=== PATIENT | male | born 1995 | race Caucasian/White ===

== ENCOUNTER 2024-12-24 02:40 | Emergency (ER) | payer OTHER, SELFPAY ==
[2024-12-24 02:42] VITALS: BP 142/84; PULSE 108; O2SAT 98
[2024-12-24 02:50] VITALS: BP 119/76; PULSE 79; RESP 16; TEMP 36.4; O2SAT 95; BMI 21.6
--- OUTSIDE RECORDS SUMMARY | 2024-12-24 03:31 | XMS_ITS | Encounter Summary ---
Author Organization [facility] Address [address] [place] [address] Phone Care Team Providers Care Automat Car Attendant Name Role Phone Bair Chatman MD Primary Care Provider Encounter Details Date Type Department Care Team (Late st Contact Info) Description 11/26/2011 Conversion Encounter [facility] [address] [facility] [place] [id number] Social History Tobacco Use Types Packs/Day Years Used Date Smoking Tobacco: Never Assessed Sex and Gender Information Value Date Recorded Sex Assigned at Not on file Legal Sex Male 6:38 PM EDT Gender Identity Not on file Sexual Orientation Not on file documented as of this encounter Plan of Treatment Not on file documented as of this encounter Visit Diagnoses Not on filedocumented in this encounter Care Teams Automat Car Attendant Relationship Specialty Start Date End Date Bari Chatman MD [address] [place] [address] [place] [id number] PCP - General 03/03/18 documented as of this encounter
--- OUTSIDE RECORDS SUMMARY | 2024-12-24 03:31 | XMS_ITS ---
Author Organization [facility] Network Address [address] [facility] [address] [place] [address] Care Team Providers Care Coat Presser Name Role Phone cedric clement Primary Care Provider CHARLES Duran [phone] REASON FOR VISIT Anal Fissures Medications Medication SIG (Take, Route, Frequency, Duration) Notes Start Date End Date Status clonazePAM 0.5 MG 1 tablet at bedtime Orally Once a day PRN Active Descovy 200-25 MG 1 tablet Orally Once a day for 30 day(s) Active Hydrocortisone 2.5 % APPLY TO AFFECTED A LONG TWICE A DAY EXTERNALLY for 28 Active Zoloft 100 MG 1 tablet Orally Once a day for 30 day(s) Active Rectiv 0.4 % USE DIRECTED APPL Y RECTALLY ONCE A DAILY FOR 30 DAYS for 30 Active Nitroglycerin 0.4 % as directed Rectal O nce a day for 30 days 06/15/2023 Active Lidocaine (Anorectal) 5 % 1 for anal fis sure Externally Four times a day PRN for 30 days 06/15/2023 Active Hydrocortisone (Perianal) 2.5 % 1 application Externally Twice a day for 30 days Active Nitroglycerin 0.4 % as directed Rectal O nce a day for 30 days Active Lidocaine 5 % 1 application as nee ded Externally Three times a day for 30 days Active Lidocaine 5 % APPLY TO AFFECTED AR EA 3 TIMES A DAY 30 (NEED INSURANCE) for 30 Active Encounters Encounter Location Date Provider Diagnosis 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 In the last 6 months he reports that pain has worsened, occurring whenever he is seated and during every BM. Normally, he has 1 BM/day BS 5-6, but notes that he sometimes has periods where he goes up to 3 days without a BM, after which he has a BM that causes severe pain. BM are followed by spasming of rectum. He notes that blood is visible in toilet bowl, especially if stool is firmer. Patient does note that he does engage in anal intercourse. He has never had colonoscopy in the past. We discussed the following: - We will begin triple therapy with Nitroglycerin ointment CT + Hydrocortisone cream CT + lidocaine ointment CT. He has been instructed to mix all 3 and use before and after BM. - If anal fissure does not improve notably in 1 month with this treatment, I recommend that he undergoes a colonoscopy. - I recommend that patient utilize dilators to prepare anus and minimize injury before engaging in anal intercourse. - Follow up in 1 month regarding sx management. 07/22/2023 Other This note was transcribed by Jose Clifton for Dr. Charles Storey and will be completed within 7 days of date of service. LEVEL 4 Number and complexity of problems (moderate): 1 undiagnosed new problem with uncertain prognosis - Anal fissure Risks (moderate): -Prescription drug management - nitroglycerin ointment -Decision regarding minor surgery with identified patient or procedure risk factors - discussion of colonoscopy Plan Of Treatment Medication Medication Name Sig Start Date Stop Date Notes Hydrocortisone (Perianal) 2.5 % 1 applic ation Externally Twice a day for 30 days Nitroglycerin 0.4 % as directed Rectal O nce a day for 30 days Lidocaine 5 % 1 application as nee ded Externally Three times a day for 30 days Treatment Notes Assessment Notes Chronic anal fissure Patient presents with a suspected anal fissure that has caused him on and off discomfort for 3 years. In the last 6 months he reports that pain has worsened, occurring whenever he is seated and during every BM. Normally, he has 1 BM/day BS 5-6, but notes that he sometimes has periods where he goes up to 3 days without a BM, after which he has a BM that causes severe pain. BM are followed by spasming of rectum. He notes that blood is visible in toilet bowl, especially if stool is firmer. Patient does note that he does engage in anal intercourse. He has never had colonoscopy in the past. We discussed the following: - We will begin triple therapy with Nitroglycerin ointment CT + Hydrocortisone cream CT + lidocaine ointment CT. He has been instructed to mix all 3 and use before and after BM. - If anal fissure does not improve notably in 1 month with this treatment, I recommend that he undergoes a colonoscopy. - I recommend that patient utilize dilators to prepare anus and minimize injury before engaging in anal intercourse. - Follow up in 1 month regarding sx management. Other This note was transcribed by Jose Clifton for Dr. Charles Storey and will be completed within 7 days of date of service. LEVEL 4 Number and complexity of problems (moderate): 1 undiagnosed new problem with uncertain prognosis - Anal fissure Risks (moderate): -Prescription drug management - nitroglycerin ointment -Decision regarding minor surgery with identified patient or procedure risk factors - discussion of colonoscopy Next Appt Details Follow Up: 4 Weeks, Reason: fissure f/u Progress Notes * Jesus GORMANonDOB:[birth year] (29 yo M)Acc No.[id number]:07/22/2023 Progress Notes Patient:?Yogesh GORMAN Provider:?Charles Storey MD :1995???Age:28 Y???Sex:Male Ryan e:07/22/2023 Address:[address] [place], [place] [id number] Pcp:cerdic clement Subjective: * Chief Complaints: * ???1. Anal Fissures. * HPI: ???General:? We have the pleasure of seeing Yogesh at [facility] on 07/22/2023 for evaluation of the above. He was previously seen on 03/10/2023. ANAL FISSURES 1) Onset - intermittent since 2019, exacerbation in 07/2022 2) Frequency - often when sitting, during every BM, followed by spasm of rectum. 3) Amount (visualized on toilet paper or in bowl) - mild if stool is soft (BS 5- 6), but when stool is firm (3-4), blood in the bowl is bright red and in larger amounts 4) Assosciated with defecation, anal pain - Y 5)History of constipation - regularly has 1 BM/day BS 5-6, but notes that he can sometimes go up to 3 days without BM, after which BM causes severe rectal pain 6) Family or personal history of colon cancer (Y or N) - N 7) Any alarming symtpoms - None 8) Personal or family hx or inflammatory bowel disease- None 9) Use of foreign body or anal intercourse - Patient does engage in anal intercourse. 10) EGD/Colonoscopy - none The tear is at 12 o'clock position in anus. He currently uses a bidet which helps with pain and bleeding when wiping with toilet paper. * ROS:?Constitutional: No weight change, fever, chills or anorexia Gastrointestinal: SEE HPI Integumentary: No rashes or edema Musculoskeletal: No weakness or muscle pain. * Medical History:? * Medications:?Taking Descovy 200-25 MG Tablet 1 tablet Orally Once a day , Taking clonazePAM 0.5 MG Tablet 1 tablet at bedtime Orally Once a day , Notes to Pharmacist: PRN, Taking Zoloft 100 MG Tablet 1 tablet Orally Once a day , Taking Hydrocortisone 2.5 % Cream APPLY TO AFFECTED AREA TWICE A DAY EXTERNALLY , Taking Rectiv 0.4 % Ointment USE DIRECTED APPLY RECTALLY ONCE A DAILY FOR 30 DAYS , Taking Lidocaine 5 % Ointment APPLY TO AFFECTED AREA 3 TIMES A DAY 30 (NEED INSURANCE) , Taking Lidocaine (Anorectal) 5 % Cream 1 for anal fissure Externally Four times a day PRN , Taking Nitroglycerin 0.4 % Ointment as directed Rectal Once a day Objective: * Vitals:? * Physical Examination:?General appearance: No evidence of malnourishment, well developed Neck: Soft, normal carotid upstroke and amplitude without bruits Lungs: Clear to auscultation, no crackles CV: RRR, no murmurs Abdomen: Patient underwent rectal exam that showed tear at 12 o'clock position. Extremities: No edema in lower extremities Skin: no rash, no swelling Psych: Alert and oriented x 3 Lymphatics/hematology/Immunology: no enlarged lymph nodes. 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 Plan: * Treatment: 2.?Others? Notes: This note was transcribed by Jose Clifton for Dr. Charles Storey and will be completed within 7 days of date of service. LEVEL 4 Number and complexity of problems (moderate): 1 undiagnosed new problem with uncertain prognosis - Anal fissure Risks (moderate): -Prescription drug management - nitroglycerin ointment -Decision regarding minor surgery with identified patient or procedure risk factors - discussion of colonoscopy?? * Follow Up:?4 Weeks (Reason: fissure f/u) * Images: * Electronic signature of CHARLES STOREY M.D. on 12/24/2024 at 03:30 AM EST Sign off status: Pending * Provider:?Charles Storey MD Date:? 3 Generated for Vanessa rodriguez/Hung/Kaiden on:?12/24/2024 03:30 AM EST History and Physical Notes * Physical Examination Category Sub-Category Detail Notes Section Note s General appearance: No evidence of malnourishment, well developed Neck: Soft, normal carotid upstroke and amplitude without bruits Lungs: Clear to auscultation, no crackles CV: RRR, no murmurs Abdomen: Patient underwent rectal exam that showed tear at 12 o'clock position. Extremities: No edema in lower extremities Skin: no rash, no swelling Psych: Alert and oriented x 3 Lymphatics/hematology/Immunology: no enlarged lymph nodes
--- OUTSIDE RECORDS SUMMARY | 2024-12-24 03:31 | XMS_ITS | Clinical Summary ---
Author Organization [facility] Address [address] [place] [address] Phone Care Team Providers Care Pick Up Man Name Role Phone Bari Chatman MD Primary Care Provider [phone] Immunizations Immunization Administration Dates Next Due DTaP 5 05/10/2001, 7,1996, 996,1996 H1N1 Inj 08/18/2009 Hep B, ped/adol 1996,1996,1996 Hib (PRP-T) 06/30/1997, 6,1996, 996 IPV 05/10/2001 Influenza, injectable, trivalent 08/21/2010,12/0 10/2007 MMR 05/10/2001,03/27/1997 Meningococcal Conj (Menactra) MCV4P 02/07/2014,0 07/03/2008 OPV 1996,1996,1996 Tdap 07/03/2008 Varicella 07/03/2008,06/30/1997 Social History Tobacco Use Types Packs/Day Years Used Date Smoking Tobacco: Never Comments:Never Smoker Sex and Gender Information Value Date Recorded Sex Assigned at Not on file Legal Sex Male 6:38 PM EDT Gender Identity Not on file Sexual Orientation Not on file Last Filed Vital Signs Vital Sign Reading Time Taken Comments Blood Pressure - - Pulse 80 02/07/2014 3:55 PM EDT Temperature 36.9 ??C (98.4 ??F) 02/01/2015 5:20 PM ED T Respiratory Rate - - Oxygen Saturation - - Inhaled Oxygen Concentration - - Weight 66.7 kg (147 lb 1.6 oz) 02/01/2015 5:20 P M EDT Height 171.5 cm (5' 7.5 ) 02/01/2015 5:20 PM EDT Body Mass Index 22.7 02/01/2015 5:20 PM EDT Plan of Treatment Health Maintenance Due Date Last Done Comments DTaP,Tdap,and Td Vaccines (7 - Td or Tdap) 07/03/2018 07/03/2008, 05/10/2001, 09/29/1997, Additional history exists Influenza Vaccines (#1) 2024 08/21/2010, 09/25 COVID-19 Vaccine ( season) 2024 Hepatitis B Vaccines Completed 1996, 1996, 1996 HIB Vaccines Completed 06/30/1997, 09/25, 1996, Additional history exists IPV Vaccines Completed 05/10/2001, 09/25, 1996, Additional history exists MMR Vaccines Completed 05/10/2001, 03/27/1997 Varicella Vaccines Completed 07/03/2008, 06/30/1997 Meningococcal Vaccine Completed 02/07/2014, 008 HPV Vaccines Aged Out No longer eligi ble based on patient's age to complete this topic Hepatitis A Vaccines Aged Out No long er eligible based on patient's age to complete this topic Men B Vaccine Aged Out No longer elig ible based on patient's age to complete this topic Pneumococcal Vaccine Aged Out No long er eligible based on patient's age to complete this topic Care Teams Pick Up Man Relationship Specialty Start Date End Date Bari Chatman MD [address] [place] [address] [place] [address] PCP - General 03/03/18
--- OUTSIDE RECORDS SUMMARY | 2024-12-24 03:31 | XMS_ITS | Clinical Summary ---
Author Organization [facility] Address [address] [place] [address] Care Team Providers Care Brick Sorter Name Role Phone Unavailable Primary Care Provider Unavailabl e Social History Tobacco Use Types Packs/Day Years Used Date Smoking Tobacco: Never Assessed Sex and Gender Information Value Date Recorded Sex Assigned at Not on file Legal Sex Male 5:52 PM EST Gender Identity Not on file Sexual Orientation Not on file Plan of Treatment Health Maintenance Due Date Last Done Comments DTaP,Tdap,and Td Vaccines (1 - Tdap) 2015 Hepatitis B Vaccines (1 of 3 - 19+ 3-dose series) 2015 COVID-19 Vaccine (2023-2 5 season) 2024 Influenza Vaccine (#1) 2024 HIB Vaccines Aged Out No longer eligi ble based on patient's age to complete this topic HPV Vaccines Aged Out No longer eligi ble based on patient's age to complete this topic Hepatitis A Vaccines Aged Out No long er eligible based on patient's age to complete this topic IPV Vaccines Aged Out No longer eligi ble based on patient's age to complete this topic MMR Vaccines Aged Out No longer eligi ble based on patient's age to complete this topic Meningococcal ACWY Vaccine Aged Out N o longer eligible based on patient's age to complete this topic Meningococcal B Vacine Aged Out No lo nger eligible based on patient's age to complete this topic Pneumococcal Vaccine: Pediat rics (0 to 5 Years) and At-Risk Patients (6 to 64 Years) Aged Out No longer eligible b ased on patient's age to complete this topic RSV Immunization Patients Un gigi 20 months Aged Out No longer eligible b ased on patient's age to complete this topic Varicella Vaccines Aged Out No longer eligible based on patient's age to complete this topic
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
[2024-12-24] MEDS: Ibuprofen 600 MG TABLET PO (03:39)
--- NOTE | 2024-12-24 03:40 | PC.NURSE ---
grandparents are at bedside ready to take pt home.
[2024-12-24 03:48] VITALS: BP 119/76; PULSE 79; RESP 16; TEMP 36.4; O2SAT 95
== END 2024-12-24 03:49 | disposition home or self-care (01) ==
PROVIDERS: Emergency Provider Internal Medicine
DX: Z04.1 Encounter for examination and observation following transport accident (principal)
CPT/HCPCS: 99283; 99284